=== PATIENT | male | born 1985 ===

== ENCOUNTER 2016-06-24 18:38 | Emergency (ER) | payer OTHER ==
--- NOTE | 2016-06-24 19:33 | ED NURSING NOTES ---
Clinical Report - Nurses [facility] [address] [place] [address] 06/24/2016 18:40 Patient: MARISOL CARVAJAL TRIAGE Triage time 18:45 Jun 24 2016. Acuity: LEVEL 2. Chief Complaint: ALLERGIC REACTION, ITCHING and HIVES and . throat discomfort. Alert. No acute distress. --18:48 Lindsey Simon R.N. 18:45 06/24/16. BP: 139/76. HR: 90. RR: 18. O2 saturation: 96%. Temp: 97.8 F. Pain level now: 07/19. --18:48 Lindsey Simon R.N. Weight: 68.9 kg. Height/Length: 68 inches. BMI: 23.1. --19:02 Lindsey Simon R.N. Medications Trileptal Oral. --18:46 Lindsey Simon R.N. Allergies No Known Drug Allergy. --18:46 Lindsey Simon R.N. History Arrived by private vehicle. Historian: family. Accompanied by family and (brother). This started just prior to arrival. Treatment GYNECOLOGICAL ASSISTANT: None. PAST MEDICAL HX: Immunizations: up-to-date. SOCIAL HX: Current every day light tobacco smoker- less than 1/2 a pack per day. History of occasional drug use: marijuana. No alcohol use. No infectious disease exposure. SELF HARM ASSESSMENT: A self harm assessment was performed. The patient answered "no" to the question "Do you have thoughts of harming or killing yourself?". FALL RISK ASSESSMENT: Fall risk assessment completed. No fall risk identified. NUTRITIONAL RISK ASSESSMENT: The nutritional risk assessment revealed no deficiencies. FUNCTIONAL ASSESSMENT: Functional assessment: no impairments noted. LEARNING NEEDS ASSESSMENT: The learning needs assessment revealed no barriers. ABUSE ASSESSMENT: Abuse assessment: The patient was asked "Do you feel safe in your home?". SKIN INTEGRITY ASSESSMENT: Skin integrity risk assessment completed. No skin integrity risk identified. --18:48 Lindsey Simon R.N. PROBLEMS: Bipolar Disorder. Pancreatitis. Leukocytosis. "walking pneumonia". Lower Extremity Pain. Immunizations. Acute Pain. Myofascial Strain. Tetanus Status. Dental Pain. --18:47 Lindsey Simon R.N. DVT - Deep Venous Thrombosis [RuleOut]. --18:47 Lindsey Simon R.N. ADDITIONAL SURGERIES: Appendectomy. --18:47 Lindsey Simon R.N. Interventions ID band on patient. To room. --18:48 Lindsey Simon R.N. PHYSICAL ASSESSMENT GENERAL / NEURO / PSYCH: Alert. He appears uncomfortable and appears anxious. Oriented X 4. RESPIRATORY: Respirations not labored. CVS: Capillary refill less than 2 seconds. GI / : Abdomen nontender. SKIN: Skin is warm and dry. Skin rash present. --18:49 Lindsey Simon R.N. NURSING PROGRESS NOTES 18:44 06/24/2016 Site #1 started via IV in the right antecubital space with an 18g angiocath; one attempt. Saline lock flushed with 10 mL saline. --18:49 Lindsey Simon R.N. Oxygen administered. quality assurance monitor final, pulse oximeter and NIBP monitor placed on patient; quality assurance monitor- Lead II; monitor alarms on. Patient gowned. Head of bed elevated. Two patient identifiers checked. Call light placed in reach. Side rails up x 1. Bed placed in lowest position. Brakes of bed on. --18:50 Lindsey Simon R.N. 18:44 06/24/2016 Epinephrine (EPINEPHrine HCl) IM 0.3 mg given. Given in the left deltoid. Allergies verified and confirmed 5 rights. --18:54 Lindsey Simon R.N. 18:51 06/24/2016 Benadryl (DiphenhydrAMINE HCl) IVP 50 mg given over 1 minute(s) via site #1. Allergies verified, confirmed 5 rights and sedative warning given to the patient. IV patency established. IV site checked: no pain, redness, or swelling. IV flushed thoroughly pre- and post-medication administration. --18:51 Lindsey Simon R.N. 18:52 06/24/2016 Started 120 mg of SOLU-MEDROL (MethylPREDNISolone Sodium Succ) IVPB; bolus of 120 mg via site #1; Allergies verified and confirmed 5 rights. IV patency established. IV site checked: no pain, redness, or swelling. IV flushed thoroughly pre- and post-medication administration. --18:52 Lindsey Simon R.N. 18:52 06/24/2016 Started bag #1 1000 mL IV Fluids IV NS (Saline); bolus of 1000 mL wide open via site #1. Allergies verified and confirmed 5 rights. IV patency established. IV site checked: no pain, redness, or swelling. IV flushed thoroughly pre- and post-medication administration. --18:53 Lindsey Simon R.N. 18:54 06/24/2016 Pepcid IVP 20 mg given over 10 minute(s) via site #1. Allergies verified and confirmed 5 rights. IV patency established. IV site checked: no pain, redness, or swelling. IV flushed thoroughly pre- and post-medication administration. --18:54 Lindsey Simon R.N. 18:54 06/24/2016 Zofran (Ondansetron HCl) IVP 4 mg given over 2 minute(s) via site #1. Allergies verified and confirmed 5 rights. IV patency established. IV site checked: no pain, redness, or swelling. IV flushed thoroughly pre- and post-medication administration. --18:54 Lindsey Simon R.N. 19:01 06/24/16. BP: 135/77. HR: 84. RR: 17. O2 saturation: 99%. Pain level now: 06/18. --19:03 Lindsey Simon R.N. Reassessment after fluids administered and medication administered. He is resting quietly. Overall patient status is improved- he states feels better. RESPIRATORY: No respiratory distress present. No respiratory distress. SKIN: The patient reports itching still present but improving. Skin is warm and dry. Skin color within normal limits. Skin rash is still present but improving. --19:03 Lindsey Simon R.N. 18:54 06/24/2016 SOLU-MEDROL IVPB Discontinued: bag #1 completed. Total amount infused: 10 mL. --19:08 Lindsey Simon R.N. 19:00 06/24/2016 Duoneb (Ipratropium-Albuterol) Neb TX 1 unit dose given. Given by the respiratory therapist. --19:45 Julisa Regan R.N. 19:09 06/24/2016 Epinephrine IM Response: pain is improving. Symptoms have improved the patient feels better. --19:09 Lindsey Simon R.N. 19:14 06/24/2016 Pepcid IVP 20 mg given over 15 minute(s) via site #1. Allergies verified and confirmed 5 rights. IV patency established. IV site checked: no pain, redness, or swelling. IV flushed thoroughly pre- and post-medication administration. --19:14 Lindsey Simon R.N. 19:29 06/24/2016 IV Fluids IV NS Discontinued: bag #1 infused upon discharge. Total amount infused: 1000 mL. IV patency established. IV site checked: no pain, redness, or swelling. IV flushed thoroughly. --19:29 Kyle Carter R.N. 19:40 06/24/2016 Site #1 removed upon discharge. Catheter intact. Bandaid applied. --19:44 Julisa Regan R.N. DISPOSITION / DISCHARGE Condition at departure: improved. No learning barriers present. Reviewed medication(s) side effects, precautions, dosing and course information. Prescription(s) given to the patient. Patient verbalized understanding. Written instructions provided in Divehi. The patient was discharged home and accompanied by expert medical writer. He left the Emergency Department ambulatory and via private vehicle. Storage Battery Charger driving. Medication list reviewed and validated. --19:43 Julisa Regan R.N. 19:40 06/24/16. BP: 123/65. HR: 83. RR: 18. O2 saturation: 99% on room air. Temp: deferred. Pain level now: 0. 19:01 06/24/16. BP: 135/77. HR: 84. RR: 17. O2 saturation: 99%. Pain level now: 06/18. 18:45 06/24/16. BP: 139/76. HR: 90. RR: 18. O2 saturation: 96%. Temp: 97.8 F. Pain level now: 07/19. --19:43 Julisa Regan R.N. Locked/Released at 06/24/2016 19:46 by Julisa Regan R.N.
--- NOTE | 2016-06-24 19:33 | ED ORDER SUMMARY ---
..... Patient: MARISOL CARVAJAL OrderSheet [facility] VisitID: [id number] [place] [address] 30y, M Registration Date/Time: 06/24/2016 ORDER SHEET Weight: 68.9 kg Allergies: No Known Drug Allergy GENERAL ORDERS: MEDICATION ORDERS: Epinephrine IM 0.1 mg (HIGH ALERT MEDICATION, NOW) (18:41 06/24/2016 EKoroleva P.A.-C) (Cancelled: Other18:43 EKoroleva P.A.-C) DuoNeb Neb Tx 1 unit dose (NOW) (18:42 06/24/2016 EKoroleva P.A.-C) (Ack 19:45 SRoberts R.N.) (19:45 SRoberts R.N.) Epinephrine IM 0.3 mg (HIGH ALERT MEDICATION, NOW) (18:43 06/24/2016 EKoroleva P.A.-C) (18:54 KKnebel R.N.) IV FLUIDS: Solu-MEDROL IV 120 mg (NOW) (18:42 06/24/2016 EKoroleva P.A.-C) (18:52 KKnebel R.N.) Benadryl IV 50 mg (NOW) (18:42 06/24/2016 EKoroleva P.A.-C) (18:51 KKnebel R.N.) Pepcid IV 40 mg/50mL (NOW) (18:42 06/24/2016 EKoroleva P.A.-C) (18:54 KKnebel R.N.) IV NS : initial bolus 1000 mL (1000 mL/hr), then 1000 mL/hr for X1 (NOW); Reji (18:42 06/24/2016 EKoroleva P.A.-C) (18:53 KKnebel R.N.) Zofran IV 4 mg (NOW) (18:42 06/24/2016 EKoroleva P.A.-C) (18:54 KKnebel R.N.) ORDER SHEET NOTES: [Electronically signed by Julisa Regan R.N. (19:46 06/24/2016)] [Electronically signed by Sena Self P.A.-C (19:53 06/24/2016)] [Electronically locked/signed by Julisa Regan R.N. (19:46 06/24/2016)]
--- NOTE | 2016-06-24 19:33 | ED CLINICAL REPORT ---
Clinical Report - Physicians/Mid Levels [facility] [address] [place] [address] 06/24/2016 18:40 Patient: MARISOL CARVAJAL Time Seen: 18:53 Mar 2016. Arrived- By private vehicle. Historian- patient. HISTORY OF PRESENT ILLNESS Chief Complaint: ALLERGIC REACTION and "HIVES". The patient has had a skin rash. This started just prior to arrival and is still present. The patient was recently exposed to food (as possible allergen) No recent medication. Was not recently exposed to poison tony. (patient was eating in a [employer] restaurant, he believes he was having beef, however possibly had poor, was trying a new meal, has a significant allergy to pork. sore throat, some sob. Rash/ pruritic.). REVIEW OF SYSTEMS No sore throat, cough, fever, chills or chest pain. No abdominal pain or vomiting. All systems otherwise negative, except as recorded above. SOCIAL HISTORY Smoker- current status unknown. History of drug use: marijuana. Not an IV drug user. No alcohol use. ADDITIONAL NOTES The nursing notes have been reviewed. PHYSICAL EXAM Vital Signs: 06/24/2016 18:45 BP: 139/76. HR: 90. RR: 18. O2 saturation: 96%. Temp: 97.8 F. Pain level now: 4/10. Eyes: Pupils equal, round and reactive to light. ENT: Ears normal. Neck: Neck supple. CVS: Normal heart rate and rhythm. Heart sounds normal. Respiratory: Decreased air movement. Breath sounds normal. No prolonged expiration, wheezes or rales. Skin: Moderate urticaria (thoraci/ lumbar, b/l extremities, neck). The rash is generalized. Neuro: Oriented X 3. PROGRESS AND PROCEDURES Course of Care: Pt with significant sudden onset of systemic hives, with diminished breath sounds, with signs of an allergic reaction, was given epi 0.3 mg im, given 120 mg solumedrol iv, given 50 mg benadryl iv, given zofran 4 mg iv, given iv ns, pepcid 40 mg iv, and duoneb. His sx significantly improved and now his hives are subsiding. Pt stable. TO f/u outpatient. Pt without signs of any further worsening. Stable. 06/24/2016 19:40 BP: 123/65. HR: 83. RR: 18. O2 saturation: 99%. Pain level now: 0/10. Patient is stable. Physical exam findings are improved. Symptoms much better. Patient/family counseled. Disposition: Discharged. CLINICAL IMPRESSION Acute urticaria secondary to allergy. INSTRUCTIONS Prescription Medications: EpiPen: inject lateral thigh as directed by physician and patient instructions. Dispense two (2) units. No refill. Substitution is permissible. OTC Medications: Take Benadryl according to label instructions. Available over the counter. (Electronically signed by Sena Self P.A.-C 06/24/2016 19:53)
--- NOTE | 2016-06-24 19:33 | ED ORDER SUMMARY ---
..... Patient: MARISOL CARVAJAL OrderSheet [facility] VisitID: [id number] [place] [address] 30y, M Registration Date/Time: 06/24/2016 ORDER SHEET Weight: 68.9 kg Allergies: No Known Drug Allergy GENERAL ORDERS: MEDICATION ORDERS: Epinephrine IM 0.1 mg (HIGH ALERT MEDICATION, NOW) (18:41 06/24/2016 EKoroleva P.A.-C) (Cancelled: Other18:43 EKoroleva P.A.-C) DuoNeb Neb Tx 1 unit dose (NOW) (18:42 06/24/2016 EKoroleva P.A.-C) (Ack 19:45 SRoberts R.N.) (19:45 SRoberts R.N.) Epinephrine IM 0.3 mg (HIGH ALERT MEDICATION, NOW) (18:43 06/24/2016 EKoroleva P.A.-C) (18:54 KKnebel R.N.) IV FLUIDS: Solu-MEDROL IV 120 mg (NOW) (18:42 06/24/2016 EKoroleva P.A.-C) (18:52 KKnebel R.N.) Benadryl IV 50 mg (NOW) (18:42 06/24/2016 EKoroleva P.A.-C) (18:51 KKnebel R.N.) Pepcid IV 40 mg/50mL (NOW) (18:42 06/24/2016 EKoroleva P.A.-C) (18:54 KKnebel R.N.) IV NS : initial bolus 1000 mL (1000 mL/hr), then 1000 mL/hr for X1 (NOW); Reji (18:42 06/24/2016 EKoroleva P.A.-C) (18:53 KKnebel R.N.) Zofran IV 4 mg (NOW) (18:42 06/24/2016 EKoroleva P.A.-C) (18:54 KKnebel R.N.) ORDER SHEET NOTES: [Electronically signed by Julisa Regan R.N. (19:46 06/24/2016)] [Electronically signed by Sena Self P.A.-C (19:53 06/24/2016)] [Electronically locked/signed by Julisa Regan R.N. (19:46 06/24/2016)]
--- NOTE | 2016-06-24 19:33 | ED CLINICAL REPORT ---
Clinical Report - Physicians/Mid Levels [facility] [address] [place] [address] 06/24/2016 18:40 Patient: MARISOL CARVAJAL Time Seen: 18:53 Mar 2016. Arrived- By private vehicle. Historian- patient. HISTORY OF PRESENT ILLNESS Chief Complaint: ALLERGIC REACTION and "HIVES". The patient has had a skin rash. This started just prior to arrival and is still present. The patient was recently exposed to food (as possible allergen) No recent medication. Was not recently exposed to poison tony. (patient was eating in a [employer] restaurant, he believes he was having beef, however possibly had poor, was trying a new meal, has a significant allergy to pork. sore throat, some sob. Rash/ pruritic.). REVIEW OF SYSTEMS No sore throat, cough, fever, chills or chest pain. No abdominal pain or vomiting. All systems otherwise negative, except as recorded above. SOCIAL HISTORY Smoker- current status unknown. History of drug use: marijuana. Not an IV drug user. No alcohol use. ADDITIONAL NOTES The nursing notes have been reviewed. PHYSICAL EXAM Vital Signs: 06/24/2016 18:45 BP: 139/76. HR: 90. RR: 18. O2 saturation: 96%. Temp: 97.8 F. Pain level now: 4/10. Eyes: Pupils equal, round and reactive to light. ENT: Ears normal. Neck: Neck supple. CVS: Normal heart rate and rhythm. Heart sounds normal. Respiratory: Decreased air movement. Breath sounds normal. No prolonged expiration, wheezes or rales. Skin: Moderate urticaria (thoraci/ lumbar, b/l extremities, neck). The rash is generalized. Neuro: Oriented X 3. PROGRESS AND PROCEDURES Course of Care: Pt with significant sudden onset of systemic hives, with diminished breath sounds, with signs of an allergic reaction, was given epi 0.3 mg im, given 120 mg solumedrol iv, given 50 mg benadryl iv, given zofran 4 mg iv, given iv ns, pepcid 40 mg iv, and duoneb. His sx significantly improved and now his hives are subsiding. Pt stable. TO f/u outpatient. Pt without signs of any further worsening. Stable. 06/24/2016 19:40 BP: 123/65. HR: 83. RR: 18. O2 saturation: 99%. Pain level now: 0/10. Patient is stable. Physical exam findings are improved. Symptoms much better. Patient/family counseled. Disposition: Discharged. CLINICAL IMPRESSION Acute urticaria secondary to allergy. INSTRUCTIONS Prescription Medications: EpiPen: inject lateral thigh as directed by physician and patient instructions. Dispense two (2) units. No refill. Substitution is permissible. OTC Medications: Take Benadryl according to label instructions. Available over the counter. (Electronically signed by Sena Self P.A.-C 06/24/2016 19:53)
--- NOTE | 2016-06-24 19:33 | ED NURSING NOTES ---
Clinical Report - Nurses [facility] [address] [place] [address] 06/24/2016 18:40 Patient: MARISOL CARVAJAL TRIAGE Triage time 18:45 Jun 24 2016. Acuity: LEVEL 2. Chief Complaint: ALLERGIC REACTION, ITCHING and HIVES and . throat discomfort. Alert. No acute distress. --18:48 Lindsey Simon R.N. 18:45 06/24/16. BP: 139/76. HR: 90. RR: 18. O2 saturation: 96%. Temp: 97.8 F. Pain level now: 07/19. --18:48 Lindsey Simon R.N. Weight: 68.9 kg. Height/Length: 68 inches. BMI: 23.1. --19:02 Lindsey Simon R.N. Medications Trileptal Oral. --18:46 Lindsey Simon R.N. Allergies No Known Drug Allergy. --18:46 Lindsey Simon R.N. History Arrived by private vehicle. Historian: family. Accompanied by family and (brother). This started just prior to arrival. Treatment SANITATION WORKER: None. PAST MEDICAL HX: Immunizations: up-to-date. SOCIAL HX: Current every day light tobacco smoker- less than 1/2 a pack per day. History of occasional drug use: marijuana. No alcohol use. No infectious disease exposure. SELF HARM ASSESSMENT: A self harm assessment was performed. The patient answered "no" to the question "Do you have thoughts of harming or killing yourself?". FALL RISK ASSESSMENT: Fall risk assessment completed. No fall risk identified. NUTRITIONAL RISK ASSESSMENT: The nutritional risk assessment revealed no deficiencies. FUNCTIONAL ASSESSMENT: Functional assessment: no impairments noted. LEARNING NEEDS ASSESSMENT: The learning needs assessment revealed no barriers. ABUSE ASSESSMENT: Abuse assessment: The patient was asked "Do you feel safe in your home?". SKIN INTEGRITY ASSESSMENT: Skin integrity risk assessment completed. No skin integrity risk identified. --18:48 Lindsey Simon R.N. PROBLEMS: Bipolar Disorder. Pancreatitis. Leukocytosis. "walking pneumonia". Lower Extremity Pain. Immunizations. Acute Pain. Myofascial Strain. Tetanus Status. Dental Pain. --18:47 Lindsey Simon R.N. DVT - Deep Venous Thrombosis [RuleOut]. --18:47 Lindsey Simon R.N. ADDITIONAL SURGERIES: Appendectomy. --18:47 Lindsey Simon R.N. Interventions ID band on patient. To room. --18:48 Lindsey Simon R.N. PHYSICAL ASSESSMENT GENERAL / NEURO / PSYCH: Alert. He appears uncomfortable and appears anxious. Oriented X 4. RESPIRATORY: Respirations not labored. CVS: Capillary refill less than 2 seconds. GI / : Abdomen nontender. SKIN: Skin is warm and dry. Skin rash present. --18:49 Lindsey Simon R.N. NURSING PROGRESS NOTES 18:44 06/24/2016 Site #1 started via IV in the right antecubital space with an 18g angiocath; one attempt. Saline lock flushed with 10 mL saline. --18:49 Lindsey Simon R.N. Oxygen administered. fire safety director, pulse oximeter and NIBP monitor placed on patient; editor index- Lead II; monitor alarms on. Patient gowned. Head of bed elevated. Two patient identifiers checked. Call light placed in reach. Side rails up x 1. Bed placed in lowest position. Brakes of bed on. --18:50 Lindsey Simon R.N. 18:44 06/24/2016 Epinephrine (EPINEPHrine HCl) IM 0.3 mg given. Given in the left deltoid. Allergies verified and confirmed 5 rights. --18:54 Lindsey Simon R.N. 18:51 06/24/2016 Benadryl (DiphenhydrAMINE HCl) IVP 50 mg given over 1 minute(s) via site #1. Allergies verified, confirmed 5 rights and sedative warning given to the patient. IV patency established. IV site checked: no pain, redness, or swelling. IV flushed thoroughly pre- and post-medication administration. --18:51 Lindsey Simon R.N. 18:52 06/24/2016 Started 120 mg of SOLU-MEDROL (MethylPREDNISolone Sodium Succ) IVPB; bolus of 120 mg via site #1; Allergies verified and confirmed 5 rights. IV patency established. IV site checked: no pain, redness, or swelling. IV flushed thoroughly pre- and post-medication administration. --18:52 Lindsey Simon R.N. 18:52 06/24/2016 Started bag #1 1000 mL IV Fluids IV NS (Saline); bolus of 1000 mL wide open via site #1. Allergies verified and confirmed 5 rights. IV patency established. IV site checked: no pain, redness, or swelling. IV flushed thoroughly pre- and post-medication administration. --18:53 Lindsey Simon R.N. 18:54 06/24/2016 Pepcid IVP 20 mg given over 10 minute(s) via site #1. Allergies verified and confirmed 5 rights. IV patency established. IV site checked: no pain, redness, or swelling. IV flushed thoroughly pre- and post-medication administration. --18:54 Lindsey Simon R.N. 18:54 06/24/2016 Zofran (Ondansetron HCl) IVP 4 mg given over 2 minute(s) via site #1. Allergies verified and confirmed 5 rights. IV patency established. IV site checked: no pain, redness, or swelling. IV flushed thoroughly pre- and post-medication administration. --18:54 Lindsey Simon R.N. 19:01 06/24/16. BP: 135/77. HR: 84. RR: 17. O2 saturation: 99%. Pain level now: 06/18. --19:03 Lindsey Simon R.N. Reassessment after fluids administered and medication administered. He is resting quietly. Overall patient status is improved- he states feels better. RESPIRATORY: No respiratory distress present. No respiratory distress. SKIN: The patient reports itching still present but improving. Skin is warm and dry. Skin color within normal limits. Skin rash is still present but improving. --19:03 Lindsey Simon R.N. 18:54 06/24/2016 SOLU-MEDROL IVPB Discontinued: bag #1 completed. Total amount infused: 10 mL. --19:08 Lindsey Simon R.N. 19:00 06/24/2016 Duoneb (Ipratropium-Albuterol) Neb TX 1 unit dose given. Given by the respiratory therapist. --19:45 Julisa Regan R.N. 19:09 06/24/2016 Epinephrine IM Response: pain is improving. Symptoms have improved the patient feels better. --19:09 Lindsey Simon R.N. 19:14 06/24/2016 Pepcid IVP 20 mg given over 15 minute(s) via site #1. Allergies verified and confirmed 5 rights. IV patency established. IV site checked: no pain, redness, or swelling. IV flushed thoroughly pre- and post-medication administration. --19:14 Lindsey Simon R.N. 19:29 06/24/2016 IV Fluids IV NS Discontinued: bag #1 infused upon discharge. Total amount infused: 1000 mL. IV patency established. IV site checked: no pain, redness, or swelling. IV flushed thoroughly. --19:29 Kyle Carter R.N. 19:40 06/24/2016 Site #1 removed upon discharge. Catheter intact. Bandaid applied. --19:44 Julisa Regan R.N. DISPOSITION / DISCHARGE Condition at departure: improved. No learning barriers present. Reviewed medication(s) side effects, precautions, dosing and course information. Prescription(s) given to the patient. Patient verbalized understanding. Written instructions provided in Azeri. The patient was discharged home and accompanied by ndt inspector. He left the Emergency Department ambulatory and via private vehicle. Community Outreach Specialist driving. Medication list reviewed and validated. --19:43 Julisa Regan R.N. 19:40 06/24/16. BP: 123/65. HR: 83. RR: 18. O2 saturation: 99% on room air. Temp: deferred. Pain level now: 0. 19:01 06/24/16. BP: 135/77. HR: 84. RR: 17. O2 saturation: 99%. Pain level now: 06/18. 18:45 06/24/16. BP: 139/76. HR: 90. RR: 18. O2 saturation: 96%. Temp: 97.8 F. Pain level now: 07/19. --19:43 Julisa Regan R.N. Locked/Released at 06/24/2016 19:46 by Julisa Regan R.N.
--- NOTE | 2016-06-24 19:54 | ED MED RECONCILIATION SUMMARY ---
Patient: MARISOL CARVAJAL Medication Reconciliation Report [facility] VisitID: [id number] [place] [address] 30y, M Registration Date/Time: 06/24/2016 Weight: 68.9 kg Height/Length: 68 in. BMI: 23.1 ALLERGIES: No Known Drug Allergy The patient's Home Medications are listed below: THE FOLLOWING MEDICATIONS NEED TO BE RECONCILED: Trileptal Oral The source(s) of the original Home Medication information: Not obtained. The following Medications were given to the patient in the Emergency Department: Benadryl [IVP] IVP 50 mg, administered: 06/24/2016 6:51:00 PM SOLU-MEDROL [IVPB] IVPB bolus 120 mg, then 120 mg, administered: 06/24/2016 6:52:00 PM IV NS IV Fluids bolus 1000 mL wide open, administered: 06/24/2016 6:52:00 PM Pepcid [IVP] IVP 20 mg, administered: 06/24/2016 6:54:00 PM Zofran [IVP] IVP 4 mg, administered: 06/24/2016 6:54:00 PM Epinephrine [IM] IM 0.3 mg, administered: 06/24/2016 6:44:00 PM Pepcid [IVP] IVP 20 mg, administered: 06/24/2016 7:14:00 PM Duoneb [Neb Tx] Neb TX 1 unit dose, administered: 06/24/2016 7:00:00 PM The following Medications were prescribed to the patient: Take Benadryl according to label instructions. Available over the counter. -- Sena Self P.A.-Sixto EpiPen: inject lateral thigh as directed by physician and patient instructions. Dispense two (2) units. No refill. Substitution is permissible. -- Sena Self P.A.-C
--- NOTE | 2016-06-24 19:54 | ED MAR SUMMARY ---
..... Medication Administration Record [facility] [address] [place] [address] Patient: MARISOL CARVAJAL Visit ID: [id number] 30y, M Weight: 68.9 kg Height/Length: 68 in BMI: 23.1 ALLERGIES: No Known Drug Allergy Given 18:44 06/24/2016 Lindsey Simon R.N. Medication Administered: EPINEPHRINE [IM] (EPINEPHRINE HCL), Dose: 0.3 mg IM. Medication Ordered: Epinephrine IM 0.3 mg (HIGH ALERT MEDICATION, NOW). Given 18:51 06/24/2016 Lindsey Simon R.N. Medication Administered: BENADRYL [IVP] (DIPHENHYDRAMINE HCL), Dose: 50 mg IVP over 1 minute(s), Site: #1 right AC. Medication Ordered: Benadryl IV 50 mg (NOW). Start 18:52 06/24/2016 Lindsey Simon R.N., Stop 18:54 06/24/2016 Lindsey Simon R.N. Medication Administered: SOLU-MEDROL [IVPB] (METHYLPREDNISOLONE SODIUM SUCC), Dose: 120 mg IVPB, Bolus: 120 mg, Site: #1 right AC. Medication Ordered: Solu-MEDROL IV 120 mg (NOW). Start 18:52 06/24/2016 Lindsey Simon R.N., Stop 19:29 06/24/2016 Kyle Carter R.N. Medication Administered: IV NS (SALINE), Dose: IV Fluids, Bolus: 1000 mL wide open, Dispensed: 1000 mL bag, Site: #1 right AC. Medication Ordered: IV NS : initial bolus 1000 mL (1000 mL/hr), then 1000 mL/hr for X1 (NOW); Reji. Given 18:54 06/24/2016 Lindsey Simon R.N. Medication Administered: ZOFRAN [IVP] (ONDANSETRON HCL), Dose: 4 mg IVP over 2 minute(s), Site: #1 right AC. Medication Ordered: Zofran IV 4 mg (NOW). Given 18:54 06/24/2016 Lindsey Simon R.N. Medication Administered: PEPCID [IVP], Dose: 20 mg IVP over 10 minute(s), Site: #1 right AC. Medication Ordered: Pepcid IV 40 mg/50mL (NOW). Given 19:00 06/24/2016 Julisa Regan R.N. Medication Administered: DUONEB [NEB TX] (IPRATROPIUM-ALBUTEROL), Dose: 1 unit dose Neb TX. Medication Ordered: DuoNeb Neb Tx 1 unit dose (NOW). Given 19:14 06/24/2016 Lindsey Simon R.N. Medication Administered: PEPCID [IVP], Dose: 20 mg IVP over 15 minute(s), Site: #1 right AC. Medication Ordered: Pepcid IV 40 mg/50mL (NOW).
--- NOTE | 2016-06-24 19:54 | ED MED RECONCILIATION SUMMARY ---
Patient: MARISOL CARVAJAL Medication Reconciliation Report [facility] VisitID: [id number] [place] [address] 30y, M Registration Date/Time: 06/24/2016 Weight: 68.9 kg Height/Length: 68 in. BMI: 23.1 ALLERGIES: No Known Drug Allergy The patient's Home Medications are listed below: THE FOLLOWING MEDICATIONS NEED TO BE RECONCILED: Trileptal Oral The source(s) of the original Home Medication information: Not obtained. The following Medications were given to the patient in the Emergency Department: Benadryl [IVP] IVP 50 mg, administered: 06/24/2016 6:51:00 PM SOLU-MEDROL [IVPB] IVPB bolus 120 mg, then 120 mg, administered: 06/24/2016 6:52:00 PM IV NS IV Fluids bolus 1000 mL wide open, administered: 06/24/2016 6:52:00 PM Pepcid [IVP] IVP 20 mg, administered: 06/24/2016 6:54:00 PM Zofran [IVP] IVP 4 mg, administered: 06/24/2016 6:54:00 PM Epinephrine [IM] IM 0.3 mg, administered: 06/24/2016 6:44:00 PM Pepcid [IVP] IVP 20 mg, administered: 06/24/2016 7:14:00 PM Duoneb [Neb Tx] Neb TX 1 unit dose, administered: 06/24/2016 7:00:00 PM The following Medications were prescribed to the patient: Take Benadryl according to label instructions. Available over the counter. -- Sena Self P.A.-Sixto EpiPen: inject lateral thigh as directed by physician and patient instructions. Dispense two (2) units. No refill. Substitution is permissible. -- Sena Self P.A.-C
--- NOTE | 2016-06-24 19:54 | ED MAR SUMMARY ---
..... Medication Administration Record [facility] [address] [place] [address] Patient: MARISOL CARVAJAL Visit ID: [id number] 30y, M Weight: 68.9 kg Height/Length: 68 in BMI: 23.1 ALLERGIES: No Known Drug Allergy Given 18:44 06/24/2016 Lindsey Simon R.N. Medication Administered: EPINEPHRINE [IM] (EPINEPHRINE HCL), Dose: 0.3 mg IM. Medication Ordered: Epinephrine IM 0.3 mg (HIGH ALERT MEDICATION, NOW). Given 18:51 06/24/2016 Lindsey Simon R.N. Medication Administered: BENADRYL [IVP] (DIPHENHYDRAMINE HCL), Dose: 50 mg IVP over 1 minute(s), Site: #1 right AC. Medication Ordered: Benadryl IV 50 mg (NOW). Start 18:52 06/24/2016 Lindsey Simon R.N., Stop 18:54 06/24/2016 Lindsey Simon R.N. Medication Administered: SOLU-MEDROL [IVPB] (METHYLPREDNISOLONE SODIUM SUCC), Dose: 120 mg IVPB, Bolus: 120 mg, Site: #1 right AC. Medication Ordered: Solu-MEDROL IV 120 mg (NOW). Start 18:52 06/24/2016 Lindsey Simon R.N., Stop 19:29 06/24/2016 Kyle Carter R.N. Medication Administered: IV NS (SALINE), Dose: IV Fluids, Bolus: 1000 mL wide open, Dispensed: 1000 mL bag, Site: #1 right AC. Medication Ordered: IV NS : initial bolus 1000 mL (1000 mL/hr), then 1000 mL/hr for X1 (NOW); Reji. Given 18:54 06/24/2016 Lindsey Simon R.N. Medication Administered: ZOFRAN [IVP] (ONDANSETRON HCL), Dose: 4 mg IVP over 2 minute(s), Site: #1 right AC. Medication Ordered: Zofran IV 4 mg (NOW). Given 18:54 06/24/2016 Lindsey Simon R.N. Medication Administered: PEPCID [IVP], Dose: 20 mg IVP over 10 minute(s), Site: #1 right AC. Medication Ordered: Pepcid IV 40 mg/50mL (NOW). Given 19:00 06/24/2016 Julisa Regan R.N. Medication Administered: DUONEB [NEB TX] (IPRATROPIUM-ALBUTEROL), Dose: 1 unit dose Neb TX. Medication Ordered: DuoNeb Neb Tx 1 unit dose (NOW). Given 19:14 06/24/2016 Lindsey Simon R.N. Medication Administered: PEPCID [IVP], Dose: 20 mg IVP over 15 minute(s), Site: #1 right AC. Medication Ordered: Pepcid IV 40 mg/50mL (NOW).
--- NOTE | 2016-06-24 19:54 | ED DISCHARGE INSTRUCTIONS ---
Patient: MARISOL CARVAJAL General Instructions [facility] VisitID: [id number] [place] [address] 30y, M Registration Date/Time: 06/24/2016 Acute urticaria secondary to allergy. INSTRUCTIONS Prescription Medications: EpiPen: inject lateral thigh as directed by physician and patient instructions. Dispense two (2) units. No refill. Substitution is permissible. OTC Medications: Take Benadryl according to label instructions. Available over the counter. ADDITIONAL INFORMATION Hives Hives is an itchy red rash that can appear suddenly and move about your body. It goes away in one place and comes back in another. This is usually caused by something that you are allergic to such as: EATING: fruit, shellfish, chocolate, nuts, tomatoes or medicine BREATHING: pollens, animal hair/fur or mold spores Exposure to cold air, sun rays or exercise can sometimes cause an attack. Many times we cannot find a cause. Medicines can be used to reduce itching and swelling. The rash will usually fade over several days, but can sometimes last up to two weeks. Home Care: 1) Do not wear tight clothing and do not take hot baths/showers since heat can make the itching worse. 2) An ice pack (ice cubes in a plastic bag, wrapped in a towel) will reduce local areas of redness and itching. Lanacaine cream or Solarcaine spray (or other product containing "benzocaine") will reduce itching. 3) Oral Benadryl (diphenhydramine) is an antihistamine available at drug and grocery stores. Unless a prescription antihistamine was given, Benadryl may be used to reduce itching if large areas of the skin are involved. Use lower doses during the daytime and higher doses at bedtime since the drug may make you sleepy. [NOTE: Do not use Benadryl if you have glaucoma or if you are a man with trouble urinating due to an enlarged prostate.] Claritin (loratadine) is an antihistamine that causes less drowsiness and is a good alternative for daytime use. 4) If you know what you are sensitive to, avoid this substance. Future reactions could be worse than this one. Follow Up with your doctor as directed by our staff, if symptoms do not begin to improve in two days. If you have had a severe reaction, or have had several episodes of hives, then ask your doctor about allergy testing to find out what you are allergic to. Get Prompt Medical Attention if any of the following occur: -- Trouble breathing or swallowing -- New or increased swelling in the face, lips, tongue or throat -- Dizziness, weakness or fainting You have been given the following additional information: Hives (Electronically signed by Sena Self P.A.-C 06/24/2016 19:53)
== END 2016-06-24 19:40 | disposition home or self-care (01) ==
LOC: ED SRH 18:38
DX: T78.40XA Allergy, unspecified, initial encounter (principal); L50.9 Urticaria, unspecified